=== PATIENT | female | born 1965 | race African-American/Black ===

== ENCOUNTER 2016-05-23 11:15 | Emergency (ER) | payer OTHER ==
[~2016-05-23] VITALS: Ht 172.7 cm; Wt 72.6 kg
[~2016-05-23 11:15] MED LIST: ALBUTEROL SULF8.5 GM INH; ASPIR 8181 MG ORAL; AZITHROMYCIN250 MG ORAL; BETIMOL5 M2 OP; CIPROFLOXACIN1 EACH OP; CYCLOBENZAPRINE10 MG ORAL; IBUPROFEN600 MG ORAL; LISINOPRIL10 MG ORAL; LISINOPRIL20 MG ORAL; MAGIC MOUTH WAS60 ML *; MEDROL DOSEPAK4 MG ORAL; METRONIDAZOLE250 MG ORAL; NAPROSYN500 M1 ORAL; NITROFURANTOIN100 M2 ORAL; NORCO 5-325 TA1 EAC1 ORAL; NORCO 5-325 TA1 EACH ORAL; PREDNISOLON5 MG/5 M2 OP; PROMETHAZINE-C118 M1 ORAL; SALINE NASAL SP45 ML NASAL; ZANTAC150 MG ORAL
[2016-05-23 12:23] LABS: BASOPHILS % (AUTO) 1.9 % (0.0-2.0); EOSINOPHILS % (AUTO) 2.6 % (0.0-3.0); LYMPHOCYTES % (AUTO) 49.7 % (20.0-45.0); MEAN CORPUSCULAR HEMOGLOBIN 30.3 PG (27.0-31.0); MEAN CORPUSCULAR VOLUME 95 FL (80-99); MEAN PLATELET VOLUME 6.8 FL (6.5-10.1); MONOCYTES % (AUTO) 12.1 % (1.0-10.0); NEUTROPHILS % (AUTO) 33.7 % (45.0-75.0); PLATELET COUNT 252 K/UL (150-450); RED BLOOD COUNT 4.21 M/UL (4.20-5.40); RED CELL DISTRIBUTION WIDTH 13.3 % (11.6-14.8); WHITE BLOOD COUNT 5.6 K/UL (4.8-10.8)
[2016-05-23 12:36] LABS: ACETAMINOPHEN < 10 ug/mL (10-30); ALANINE AMINOTRANSFERASE 19 U/L (3-33); ALCOHOL < 10 mg/dL; ANION GAP 13 (5-15); ASPARTATE AMINO TRANSFERASE 29 U/L (5-40); CALCIUM 9.4 mg/dL (8.6-10.2); CARBON DIOXIDE 25 mEQ/L (20-30); CHLORIDE 101 mEQ/L (98-107); GLOMERULAR FILTRATION RATE > 60 mL/min (>60); HEMOLYSIS 40; POTASSIUM 4.1 mEQ/L (3.4-4.9); SODIUM 139 mEQ/L (135-145); TOTAL PROTEIN 7.3 g/dL (6.6-8.7)
[2016-05-23 13:14] VITALS: BP 115/72
[2016-05-23 15:26] VITALS: BP 120/80
--- NOTE | 2016-05-23 15:30 | Emergency Room Report ---
History of Present Illness General Chief Complaint: Pain Source: Patient Present Illness HPI The patient presents stating she is being poisoned. She states that her landlord is poisoning her food. She denies any drugs at this time. In the past she's felt similarly after being exposed to amphetamine. States landlord wants to evict her. Has generalized malaise, occasional nausea, no vomiting or diarrhea. No dysuria. No cough or sore throat. + some chest discomfort. No rashes. Denies medical or psychiatric problems. No SI or HI. Allergies: Coded Allergies: No Known Allergies (Unverified , 08/07/15) Patient History Social History: Reports: drug use - though denies, smoking - former Social History Narrative in apartment Last Menstrual Period: 1991 Now: No Nursing Documentation-[facility] Past Medical History: No History, Except For Hx Hypertension: Yes Hx Pacemaker: No Hx Asthma: Yes Hx COPD: No Hx Diabetes: Yes - BORDERLINE Hx Cancer: Yes - CERVICAL (HYSTERECTOMY) Hx Gastrointestinal Problems: Yes - ULCERS, DIVERTICULOSIS, Hx Dialysis: No - HERPES History Of Psychiatric Problem: Yes - PTSD Hx Cerebrovascular Accident: No Hx Seizures: No Review of Systems All Other Systems: negative except mentioned in HPI Physical Exam Vital Signs Date Time Temp Pulse Resp B/P Pulse Ox O2 Delivery O2 Flow Rate FiO2 05/23/16 11:26 98.8 70 16 116/82 98 Room Air Sp02 EP Interpretation: reviewed, normal General Appearance: well appearing, no apparent distress, GCS 15 Head: normocephalic Eyes: left eye other - opacity ENT: moist mucus membranes Neck: supple Respiratory: lungs clear, normal breath sounds Cardiovascular #1: regular rate, rhythm Cardiovascular #2: 2+ radial (R) Gastrointestinal: normal inspection, normal bowel sounds, non tender, no mass, non-distended Musculoskeletal: back normal, gait/station normal, normal range of motion Neurologic: alert, oriented x3, bacteriology research assistant III-XII nml as tested - grossly normal, motor strength/tone normal, normal gait Psychiatric: anxious, other - paranoid ideation - not psychotic Skin: normal inspection, warm/dry Medical Decision Making Diagnostic Impression: Primary Impression: Amphetamine abuse Additional Impression: Paranoid ideation ER Course Patient presents alleging being poisoned. DDx: shizoaffective with paranoia, drug abuse/exposure, electrolyte abnormalities amongst others. As afebrile, doubt cerebritis or infectious etiology. Need to evaluate labs with tox. Treatment with IV hydration. Not gravely disabled, no SI/HI. Labs with + amphetamine screen. Improved with treatment. Told needs to report to PD if she is not consciously taking drugs. Stable for outpatient observation and treatment. Laboratory Tests Test 05/23/16 11:55 White Blood Count 5.6 K/UL (4.8-10.8) Red Blood Count 4.21 M/UL (4.20-5.40) Hemoglobin 12.7 G/DL (12.0-16.0) Hematocrit 39.8 % (37.0-47.0) Mean Corpuscular Volume 95 FL (80-99) Mean Corpuscular Hemoglobin 30.3 PG (27.0-31.0) Mean Corpuscular Hemoglobin Concent 32.0 G/DL (32.0-36.0) Red Cell Distribution Width 13.3 % (11.6-14.8) Platelet Count 252 K/UL (150-450) Mean Platelet Volume 6.8 FL (6.5-10.1) Neutrophils (%) (Auto) 33.7 % (45.0-75.0) L Lymphocytes (%) (Auto) 49.7 % (20.0-45.0) H Monocytes (%) (Auto) 12.1 % (1.0-10.0) H Eosinophils (%) (Auto) 2.6 % (0.0-3.0) Basophils (%) (Auto) 1.9 % (0.0-2.0) Sodium Level 139 mEQ/L (135-145) Potassium Level 4.1 mEQ/L (3.4-4.9) Chloride Level 101 mEQ/L (98-107) Carbon Dioxide Level 25 mEQ/L (20-30) Anion Gap 13 (5-15) Blood Urea Nitrogen 11 mg/dL (7-23) Creatinine 1.0 mg/dL (0.5-0.9) H Estimate Glomerular Filtration Rate > 60 mL/min (>60) Glucose Level 88 mg/dL (74-106) Calcium Level 9.4 mg/dL (8.6-10.2) Total Bilirubin 0.3 mg/dL (0.0-1.2) Aspartate Amino Transferase (AST) 29 U/L (5-40) Alanine Aminotransferase (ALT) 19 U/L (3-33) Alkaline Phosphatase 59 U/L (35-104) Total Creatine Kinase 152 U/L (26-140) H Total Protein 7.3 g/dL (6.6-8.7) Albumin 3.7 g/dL (3.5-5.2) Globulin 3.6 g/dL Albumin/Globulin Ratio 1.0 (1.0-2.7) Salicylates Level < 1 mg/dL (10-30) L Urine Opiates Screen Negative (NEGATIVE) Acetaminophen Level < 10 ug/mL (10-30) L Urine Barbiturates Screen Negative (NEGATIVE) Phencyclidine (PCP) Screen Negative (NEGATIVE) Urine Amphetamines Screen Positive (NEGATIVE) H Urine Benzodiazepines Screen Negative (NEGATIVE) Urine Cocaine Screen Negative (NEGATIVE) Urine Marijuana (THC) Screen Negative (NEGATIVE) Serum Alcohol < 10 mg/dL EKG Diagnostic Results Rate: bradycardiac ST Segments: no acute changes Rhythm Strip Diag. Results Rhythm: no PVC's, no ectopy, other - shima Last Vital Signs Date Time Temp Pulse Resp B/P Pulse Ox O2 Delivery O2 Flow Rate FiO2 05/23/16 15:26 98.5 65 18 120/80 99 Room Air Status: improved Disposition: HOME, SELF-CARE Condition: Improved Referrals: Seema Ortiz Patient Instructions: Stimulant Use Disorder-Amphetamines Additional Instructions: I suggest going to Amphetamine Anonymous. Mian Rosa M.D. May 23, 2016 15:30
[2016-05-23 15:40] VITALS: BP 120/80
--- NOTE | 2016-05-25 15:19 | Cardiology Report ---
APPROVED REPORT EKG Measurement Heart [id number] Sinus bradycardia Otherwise normal ECG
== END 2016-05-23 15:40 | disposition home or self-care (01) ==
LOC: EMR 11:54
DX: F15.10 Other stimulant abuse, uncomplicated (principal); F22 Delusional disorders; F17.200 Nicotine dependence, unspecified, uncomplicated; I10 Essential (primary) hypertension; J45.909 Unspecified asthma, uncomplicated; E11.9 Type 2 diabetes mellitus without complications; K57.90 Diverticulosis of intestine, part unspecified, without perforation or abscess without bleeding; F43.10 Post-traumatic stress disorder, unspecified; Z85.41 Personal history of malignant neoplasm of cervix uteri; Z90.710 Acquired absence of both cervix and uterus
CPT/HCPCS: 36415; 80053; 80300; 80329; 82550; 85025; 93005; 96374

== ENCOUNTER 2016-06-03 10:57 | Emergency (ER) | payer OTHER ==
[~2016-06-03] VITALS: Ht 160 cm; Wt 83.9 kg
[2016-06-03] MEDS ORDERED: ZANTAC150 MG ORAL (11:04)
[2016-06-03] MEDS ORDERED: LORazepam 0.5mg tab ORAL ONE (12:00)
[2016-06-03] MEDS ORDERED: ZOFRAN ODT4 MG ORAL (13:00)
[2016-06-03 13:15] VITALS: BP 130/85
--- NOTE | 2016-06-04 16:20 | Emergency Room Report ---
History of Present Illness General Chief Complaint: General Complaint Source: Patient, Medical Record Present Illness HPI Patient presents complaining that she feels some palpitation sensation She feels nauseous and she feels that she has been poisoned with amphetamines patient had brought a sample of dough that she feels is likely poisoned with amphetamine Denies any other chest pain denies any headache or visual changes Denies any back or flank pain she does feel again nauseous denies any fevers or chills Allergies: Coded Allergies: No Known Allergies (Unverified , 08/07/15) Patient History Past Medical History: see triage record Pertinent Family History: none : 6 Para: 3 Reviewed Nursing Documentation: PMH: Agreed, PSxH: Agreed Nursing Documentation-PMH Hx Hypertension: Yes Hx Pacemaker: No Hx Asthma: Yes Hx COPD: No Hx Diabetes: Yes - BORDERLINE Hx Cancer: Yes - CERVICAL (HYSTERECTOMY) Hx Gastrointestinal Problems: Yes - ULCERS, DIVERTICULOSIS, Hx Dialysis: No - HERPES Hx Cerebrovascular Accident: No Hx Seizures: No Review of Systems All Other Systems: negative except mentioned in HPI Physical Exam Vital Signs Date Time Temp Pulse Resp B/P Pulse Ox O2 Delivery O2 Flow Rate FiO2 06/03/16 10:59 98.4 71 16 118/83 100 Room Air Sp02 EP Interpretation: reviewed, normal General Appearance: well appearing, no apparent distress Head: normocephalic, atraumatic Eyes: left eye EOMI - Severe cataracts in the left eye ENT: hearing grossly normal, normal pharynx, TMs + canals normal, uvula midline Neck: full range of motion, supple, no meningismus, no bony tend Respiratory: lungs clear, normal breath sounds, no rhonchi, no respiratory distress, no retraction, no accessory muscle use Cardiovascular #1: normal peripheral pulses, regular rate, rhythm, no edema, no gallop, no JVD, no murmur Gastrointestinal: normal bowel sounds, non tender, soft, no mass, no organomegaly, non-distended, no guarding, no hernia, no pulsatile mass, no rebound Genitourinary: no CVA tenderness Musculoskeletal: normal inspection Neurologic: oriented x3, responsive, clam treader III-XII nml as tested, motor strength/ tone normal, sensory intact Psychiatric: mood/affect normal Skin: normal color, no rash, warm/dry, palpation normal Lymphatic: normal inspection, no adenopathy Medical Decision Making Diagnostic Impression: Primary Impression: Poisoning by amphetamine, undetermined intent ER Course Patient requested a urine drug screen At this time it does show amphetamine positive similar to previous request and positive findings I did notify her that unfortunately we cannot run forensics testing on her sample here to the emergency room Patient requires close outpatient followup She was given symptomatic medications for her symptoms and is stable for close outpatient followup Labs Test 06/03/16 11:55 Urine Opiates Screen Negative (NEGATIVE) Urine Barbiturates Screen Negative (NEGATIVE) Phencyclidine (PCP) Screen Negative (NEGATIVE) Urine Amphetamines Screen Positive (NEGATIVE) Urine Benzodiazepines Screen Negative (NEGATIVE) Urine Cocaine Screen Negative (NEGATIVE) Urine Marijuana (THC) Screen Negative (NEGATIVE) Last Vital Signs Date Time Temp Pulse Resp B/P Pulse Ox O2 Delivery O2 Flow Rate FiO2 06/03/16 13:15 97.9 60 16 130/85 98 Room Air Status: improved Disposition: HOME, SELF-CARE Condition: Improved Scripts Ondansetron Odt* (ZOFRAN ODT*) 4 Mg Tab.rapdis 4 MG ORAL Q6H Y for Nausea & Vomiting, #12 TAB 0 Refills Prov: LUCY HERNANDEZ D.O. 06/03/16 Referrals: [facility],REFERRING (PCP) Patient Instructions: Stimulant Use Disorder-Amphetamines, Poisoning Information, Adult Additional Instructions: Patient is provided with the discharge instructions notified to follow up with primary doctor in the next 2-3 days otherwise return to the er with any worsening symptoms. LUCY HERNANDEZ D.O. Jun 04, 2016 16:20
== END 2016-06-03 13:15 | disposition home or self-care (01) ==
LOC: EMR 11:42
DX: R00.2 Palpitations (principal); T43.624A Poisoning by amphetamines, undetermined, initial encounter; Y92.9 Unspecified place or not applicable; I10 Essential (primary) hypertension; J45.909 Unspecified asthma, uncomplicated; Z85.41 Personal history of malignant neoplasm of cervix uteri; Z90.710 Acquired absence of both cervix and uterus; Z87.19 Personal history of other diseases of the digestive system
CPT/HCPCS: 80300; 99282

== ENCOUNTER 2016-09-14 18:38 | Emergency (ER) | payer OTHER ==
[~2016-09-14] VITALS: Ht 160 cm; Wt 86.2 kg
[~2016-09-14 18:38] MED LIST changes: +ZOFRAN ODT4 MG ORAL
[2016-09-14 18:53] VITALS: BP 130/78
--- NOTE | 2016-09-14 19:09 | Emergency Room Report ---
History of Present Illness General Chief Complaint: Headache Source: Patient Present Illness HPI The patient presents with a headache that started on . She was driving to [place]. She smoked and had some alcohol that night. The next day she took some BC powder and there was some relief in her right arm. The headache is been intermittent. She's taken aspirin about every day. It was relieved earlier with drinking caffeine after the aspirin. And then it really went away when she took some tramadol. She still has been having some intermittent chest discomfort. She feels it might be related to taking all the medications she had. It's not exertional. Pain in arm and head 9/10. Arm is more with extension - sharp. Chest discomfort is burning, not exertional. The patient has glaucoma and is blind in her left eye. Family history of blood clots. No NVD, fevers, change vision, persistent weakness or numbness. Allergies: Coded Allergies: No Known Allergies (Unverified , 08/07/15) Patient History Past Medical History: see triage record Social History: Reports: alcohol use, drug use - in the past, smoking Social History Narrative has boyfriend in [place] Reviewed Nursing Documentation: PMH: Agreed, PSxH: Agreed Nursing Documentation-PMH Past Medical History: No History, Except For Hx Hypertension: Yes Hx Pacemaker: No Hx Asthma: Yes Hx COPD: No Hx Diabetes: Yes - BORDERLINE Hx Cancer: Yes - CERVICAL (HYSTERECTOMY) Hx Gastrointestinal Problems: Yes - ULCERS, DIVERTICULOSIS, Hx Dialysis: No - HERPES Hx Cerebrovascular Accident: No Hx Seizures: No Review of Systems All Other Systems: negative except mentioned in HPI Physical Exam Vital Signs Date Time Temp Pulse Resp B/P Pulse Ox O2 Delivery O2 Flow Rate FiO2 09/14/16 18:43 98.4 73 16 130/78 100 Room Air Sp02 EP Interpretation: reviewed, normal General Appearance: well appearing, no apparent distress, GCS 15 Head: normocephalic Eyes: left eye other - scarring of cornea, bilateral eye EOMI, bilateral eye PERRL, bilateral eye normal inspection ENT: moist mucus membranes Neck: supple Respiratory: lungs clear, normal breath sounds Cardiovascular #1: regular rate, rhythm Cardiovascular #2: 2+ radial (R) Gastrointestinal: normal inspection, normal bowel sounds, non tender, no mass, non-distended Musculoskeletal: back normal, gait/station normal, normal range of motion, other - extensor surface tenderness of R arm Neurologic: alert, oriented x3, house nurse III-XII nml as tested, motor strength/tone normal, DTRs symmetric, sensory intact, cerebellar normal, speech normal Psychiatric: mood/affect normal Skin: normal inspection, warm/dry Medical Decision Making Diagnostic Impression: Primary Impression: Headache Qualified Codes: R51 - Headache Additional Impressions: Chest pain Qualified Codes: R07.9 - Chest pain, unspecified R forearm tenderness ER Course Patient presents with a constellation of headache, epigastric and left-sided chest pain with sensory changes in her right arm that have resolved. Differential includes TIA, migraine Harjinder, headache amongst others. We to exclude myocardial infarction. EKG, labs and chest x-ray will be obtained. The patient be treated for her epigastric pain and also her pain.Neurologic exam excludes CVA at this time. Labs unremarkable. Improved with treatment. Patient stable for outpatient observation and treatment. Laboratory Tests Test 09/14/16 19:18 09/14/16 19:26 09/14/16 20:39 White Blood Count 6.7 K/UL (4.8-10.8) Red Blood Count 3.90 M/UL (4.20-5.40) L Hemoglobin 12.5 G/DL (12.0-16.0) Hematocrit 35.9 % (37.0-47.0) L Mean Corpuscular Volume 92 FL (80-99) Mean Corpuscular Hemoglobin 32.1 PG (27.0-31.0) H Mean Corpuscular Hemoglobin Concent 34.8 G/DL (32.0-36.0) Red Cell Distribution Width 13.1 % (11.6-14.8) Platelet Count 190 K/UL (150-450) Mean Platelet Volume 6.7 FL (6.5-10.1) Neutrophils (%) (Auto) 33.9 % (45.0-75.0) L Lymphocytes (%) (Auto) 53.9 % (20.0-45.0) H Monocytes (%) (Auto) 8.7 % (1.0-10.0) Eosinophils (%) (Auto) 1.7 % (0.0-3.0) Basophils (%) (Auto) 1.8 % (0.0-2.0) Sodium Level 139 mEQ/L (135-145) Potassium Level 3.7 mEQ/L (3.4-4.9) Chloride Level 99 mEQ/L (98-107) Carbon Dioxide Level 24 mEQ/L (20-30) Anion Gap 16 (5-15) H Blood Urea Nitrogen 9 mg/dL (7-23) Creatinine 0.9 mg/dL (0.5-0.9) Estimate Glomerular Filtration Rate > 60 mL/min (>60) Glucose Level 116 mg/dL (74-106) H Calcium Level 9.3 mg/dL (8.6-10.2) Total Bilirubin 0.3 mg/dL (0.0-1.2) Aspartate Amino Transferase (AST) 27 U/L (5-40) Alanine Aminotransferase (ALT) 18 U/L (3-33) Alkaline Phosphatase 69 U/L (35-104) Total Creatine Kinase 191 U/L (26-140) H Troponin I < 0.30 ng/mL (<=0.30) Total Protein 7.0 g/dL (6.6-8.7) Albumin 3.7 g/dL (3.5-5.2) Globulin 3.3 g/dL Albumin/Globulin Ratio 1.1 (1.0-2.7) Urine Color Pale yellow Urine Appearance Clear Urine pH 6 (4.5-8.0) Urine Specific [place] 1.015 (1.005-1.035) Urine Protein Negative (NEGATIVE) Urine Glucose (UA) Negative (NEGATIVE) Urine Ketones Negative (NEGATIVE) Urine Occult Blood Negative (NEGATIVE) Urine Nitrite Negative (NEGATIVE) Urine Bilirubin Negative (NEGATIVE) Urine Urobilinogen Normal MG/DL (0.0-1.0) Urine Leukocyte Esterase Negative (NEGATIVE) Urine Opiates Screen Negative (NEGATIVE) Urine Barbiturates Screen Negative (NEGATIVE) Phencyclidine (PCP) Screen Negative (NEGATIVE) Urine Amphetamines Screen Negative (NEGATIVE) Urine Benzodiazepines Screen Negative (NEGATIVE) Urine Cocaine Screen Negative (NEGATIVE) Urine Marijuana (THC) Screen Positive (NEGATIVE) H Erythrocyte Sedimentation Rate Pending EKG Diagnostic Results Rate: normal Rhythm: NSR ST Segments: no acute changes Rhythm Strip Diag. Results EP Interpretation: yes Rhythm: NSR, no PVC's, no ectopy Chest X-Ray Diagnostic Results EP Interpretation: Yes Findings: no consolidation, no effusion, no pneumothorax, no acute cardiopulmonary disease Number of Views: 1 Last Vital Signs Date Time Temp Pulse Resp B/P Pulse Ox O2 Delivery O2 Flow Rate FiO2 09/14/16 23:51 66 15 124/72 98 Room Air 09/14/16 19:44 98.4 Status: improved Disposition: HOME, SELF-CARE Condition: Improved Mian Rosa M.D. Sep 14, 2016 19:09
[2016-09-14] MEDS ORDERED: Ketorolac 30mg Inj IV ONE (19:15)
[2016-09-14] MEDS ORDERED: Famotidine 20 MG/ 2ML VIAL IVP ONE (19:15)
[2016-09-14 20:04] VITALS: BP 141/73
[2016-09-14 20:05] LABS: BASOPHILS % (AUTO) 1.8 % (0.0-2.0); EOSINOPHILS % (AUTO) 1.7 % (0.0-3.0); LYMPHOCYTES % (AUTO) 53.9 % (20.0-45.0); MEAN CORPUSCULAR HEMOGLOBIN 32.1 PG (27.0-31.0); MEAN CORPUSCULAR HGB CONC 34.8 G/DL (32.0-36.0); MEAN CORPUSCULAR VOLUME 92 FL (80-99); MEAN PLATELET VOLUME 6.7 FL (6.5-10.1); MONOCYTES % (AUTO) 8.7 % (1.0-10.0); NEUTROPHILS % (AUTO) 33.9 % (45.0-75.0); PLATELET COUNT 190 K/UL (150-450); RED CELL DISTRIBUTION WIDTH 13.1 % (11.6-14.8); WHITE BLOOD COUNT 6.7 K/UL (4.8-10.8)
[2016-09-14 20:20] LABS: APPEARANCE,URINE CLEAR; KETONES,URINE NEGATIVE (NEGATIVE); LEUKOCYTE ESTERASE ,URINE NEGATIVE (NEGATIVE); NITRITE,URINE NEGATIVE (NEGATIVE); PH,URINE 6 (4.5-8.0); PROTEIN,URINE NEGATIVE (NEGATIVE); UROBILINOGEN,URINE NORMAL MG/DL (0.0-1.0)
[2016-09-14 20:24] LABS: ALANINE AMINOTRANSFERASE 18 U/L (3-33); ALBUMIN/GLOBULIN RATIO 1.1 (1.0-2.7); ANION GAP 16 (5-15); ASPARTATE AMINO TRANSFERASE 27 U/L (5-40); CALCIUM 9.3 mg/dL (8.6-10.2); CARBON DIOXIDE 24 mEQ/L (20-30); CHLORIDE 99 mEQ/L (98-107); CREATININE 0.9 mg/dL (0.5-0.9); GLOMERULAR FILTRATION RATE > 60 mL/min (>60); HEMOLYSIS 31; POTASSIUM 3.7 mEQ/L (3.4-4.9); SODIUM 139 mEQ/L (135-145)
[2016-09-14 20:25] LABS: TROPONIN I < 0.30 ng/mL (<=0.30)
[2016-09-14 23:51] VITALS: BP 124/72
--- NOTE | 2016-09-15 11:38 | Diagnostic Imaging Report ---
Indication: Chest pain Technique: One view of the chest Comparison: 03/25/2016 Findings: Heart size is upper limits of normal. Lungs and pleural spaces are clear. No significant change Impression: No acute process
--- NOTE | 2016-09-16 14:27 | Cardiology Report ---
APPROVED REPORT EKG Measurement Heart [id number] Normal sinus rhythm Normal ECG
== END 2016-09-14 23:57 | disposition home or self-care (01) ==
LOC: EMR 19:10
DX: R51 Headache (principal); R07.89 Other chest pain; M79.631 Pain in right forearm; F17.200 Nicotine dependence, unspecified, uncomplicated; Z85.41 Personal history of malignant neoplasm of cervix uteri
CPT/HCPCS: 36415; 71010; 80053; 80300; 81003; 82550; 84484; 85025; 85651; 93005; 96374; 96375; 99284; J1885; S0028

== ENCOUNTER 2016-10-14 16:52 | Emergency (ER) | payer OTHER ==
[~2016-10-14] VITALS: Ht 160 cm; Wt 89.8 kg
[2016-10-14 17:40] VITALS: BP 137/77
[2016-10-14] MEDS ORDERED: PREDNISONE20 MG ORAL (17:55)
[2016-10-14] MEDS ORDERED: BENADRYL25 MG ORAL (17:55)
[2016-10-14] MEDS ORDERED: CEPHALEXIN500 MG ORAL (17:55)
[2016-10-14 18:01] VITALS: BP 137/77
--- NOTE | 2016-10-14 20:38 | Emergency Room Report ---
History of Present Illness General Chief Complaint: General Complaint Source: Patient Present Illness HPI The patient is a 51-year-old female presenting for possible insect bites. The patient states that she has been sleeping at a hotel and noticed itching of the abdomen and face. She denies any known allergies. She states that she noticed dark spots in the area is then applied hydrocortisone which has not been helping. She is concerned for bed bug bites. She denies any pain. She denies any other symptoms including N, V, F, chills, ARZATE, dizziness, SOB, CP Allergies: Coded Allergies: No Known Allergies (Unverified , 08/07/15) Patient History Past Medical History: see triage record Pertinent Family History: none Now: No Reviewed Nursing Documentation: PMH: Agreed, PSxH: Agreed Nursing Documentation-PMH Past Medical History: No Stated History Hx Hypertension: Yes Hx Pacemaker: No Hx Asthma: Yes Hx COPD: No Hx Diabetes: Yes - BORDERLINE Hx Cancer: Yes - CERVICAL (HYSTERECTOMY) Hx Gastrointestinal Problems: Yes - ULCERS, DIVERTICULOSIS, Hx Dialysis: No - HERPES Hx Cerebrovascular Accident: No Hx Seizures: No Review of Systems All Other Systems: negative except mentioned in HPI Physical Exam Vital Signs Date Time Temp Pulse Resp B/P Pulse Ox O2 Delivery O2 Flow Rate FiO2 10/14/16 17:27 98.4 73 18 137/77 94 Room Air Sp02 EP Interpretation: reviewed, normal General Appearance: no apparent distress, alert, GCS 15, non-toxic Head: normocephalic, atraumatic Eyes: bilateral eye PERRL, bilateral eye normal inspection ENT: hearing grossly normal, normal pharynx, no angioedema, normal voice Neck: full range of motion, supple/symm/no masses Respiratory: chest non-tender, lungs clear, normal breath sounds, speaking full sentences Gastrointestinal: normal bowel sounds, non tender, soft, non-distended, no guarding, no rebound, other - there is a macular erythematous lesion to the R of umbilicus. No edema. Non tender. Several similar lesions noted on arms and face Musculoskeletal: back normal, gait/station normal, normal range of motion, non- tender Neurologic: alert, oriented x3, responsive, motor strength/tone normal, sensory intact, normal gait, speech normal Psychiatric: judgement/insight normal, memory normal, mood/affect normal, no suicidal/homicidal ideation Skin: normal color, warm/dry, well hydrated, rash - several erythematous/ hyperpigmented lesions of the abdomen, arms, and face. No vessicles. Non tender Lymphatic: no adenopathy Medical Decision Making PA Attestation Dr. Warren is my supervising physician. Patient management was discussed with my supervising physician Diagnostic Impression: Primary Impression: Insect bite Qualified Codes: W57.XXXA - Bitten or stung by nonvenomous insect and other nonvenomous arthropods, initial encounter ER Course The patient is a 51-year-old female presenting for possible insect bites Ddx considered include but not limited to insect bite, scabies, contact dermatitis, eczema, cellulitis PE: afebrile. NAD there is a macular erythematous lesion to the R of umbilicus. No edema. Non tender. Several similar lesions noted on arms and face. No lesions in web spaces. No burrowing. No angioedema. Lungs CTA bilat. The patient will be discharged with a prescription for prednisone, Keflex, and Benadryl. ER precautions Last Vital Signs Date Time Temp Pulse Resp B/P Pulse Ox O2 Delivery O2 Flow Rate FiO2 10/14/16 18:01 98.4 81 18 137/77 94 Room Air Status: improved Disposition: HOME, SELF-CARE Condition: Improved Scripts Prednisone* (PREDNISONE*) 20 Mg Tablet 20 MG ORAL DAILY, #5 TAB 0 Refills Prov: TERZIANLAURELY P.A. 10/14/16 Cephalexin* (KEFLEX*) 500 Mg Capsule 500 MG ORAL EVERY 12 HOURS, #14 CAP 0 Refills Prov: TERZIAN,RYLAND P.A. 10/14/16 Diphenhydramine Hcl* (BENADRYL*) 25 Mg Capsule 25 MG ORAL Q6H Y for Itching, #15 CAP Prov: TERZIAN,RYLAND P.A. 10/14/16 Patient Instructions: Insect Bite, [id number] Additional Instructions: I discussed my findings with the patient. All questions and concerns have been answered. Treatment and medication compliance have been addressed. I advised the patient that they need to follow up with PMD in 3-5 days. Return to ED if symptoms worsen, new symptoms arise, or if needed for any reason. Patient verbalized understanding of discharge instructions. RYLAND MCCLELLAN October 14, 2016 20:37
== END 2016-10-14 18:03 | disposition home or self-care (01) ==
LOC: EMR 17:22
DX: S30.861A Insect bite (nonvenomous) of abdominal wall, initial encounter (principal); S00.86XA Insect bite (nonvenomous) of other part of head, initial encounter; S40.862A Insect bite (nonvenomous) of left upper arm, initial encounter; S40.861A Insect bite (nonvenomous) of right upper arm, initial encounter; W57.XXXA Bitten or stung by nonvenomous insect and other nonvenomous arthropods, initial encounter; Y92.89 Other specified places as the place of occurrence of the external cause; I10 Essential (primary) hypertension; J45.909 Unspecified asthma, uncomplicated; Z90.710 Acquired absence of both cervix and uterus; Z87.19 Personal history of other diseases of the digestive system
CPT/HCPCS: 99284

== ENCOUNTER 2017-05-10 19:19 | Emergency (ER) | payer OTHER ==
[~2017-05-10] VITALS: Ht 160 cm; Wt 85.7 kg
[~2017-05-10 19:19] MED LIST changes: +BENADRYL25 MG ORAL; +CEPHALEXIN500 MG ORAL; +PREDNISONE20 MG ORAL
[2017-05-10] MEDS ORDERED: PANTOPRAZOLE SO40 MG ORAL (19:37)
[2017-05-10] MEDS ORDERED: Sodium Chloride 500ML 500 ML IV ONE (19:58)
[2017-05-10 20:40] LABS: BASOPHILS % (AUTO) 1.3 % (0.0-2.0); EOSINOPHILS % (AUTO) 1.2 % (0.0-3.0); LYMPHOCYTES % (AUTO) 40.5 % (20.0-45.0); MEAN CORPUSCULAR HEMOGLOBIN 28.4 PG (27.0-31.0); MEAN CORPUSCULAR HGB CONC 30.8 G/DL (32.0-36.0); MEAN CORPUSCULAR VOLUME 92 FL (80-99); MEAN PLATELET VOLUME 5.7 FL (6.5-10.1); MONOCYTES % (AUTO) 7.5 % (1.0-10.0); NEUTROPHILS % (AUTO) 49.6 % (45.0-75.0); PLATELET COUNT 260 K/UL (150-450); RED BLOOD COUNT 4.39 M/UL (4.20-5.40); RED CELL DISTRIBUTION WIDTH 12.8 % (11.6-14.8); WHITE BLOOD COUNT 7.7 K/UL (4.8-10.8)
[2017-05-10 20:42] VITALS: BP 148/101
[2017-05-10] MEDS ORDERED: Ketorolac 30mg Inj IV ONE (20:45)
[2017-05-10 20:51] LABS: CHLORIDE 107 MMOL/L (98-107); POTASSIUM 3.3 MMOL/L (3.5-5.1); SODIUM 142 MMOL/L (136-145)
[2017-05-10 20:57] LABS: ANION GAP 9 mmol/L (5-15); CALCIUM 9.5 MG/DL (8.5-10.1); CARBON DIOXIDE 26 MMOL/L (21-32); CREATININE 0.9 MG/DL (0.55-1.30); GLOMERULAR FILTRATION RATE > 60 mL/min (>60)
[2017-05-10 21:04] LABS: ACETAMINOPHEN < 2 MCG/ML (10-30); ALANINE AMINOTRANSFERASE 25 U/L (12-78); ALBUMIN/GLOBULIN RATIO 0.9 (1.0-2.7); ALCOHOL < 3 mg/dL; ASPARTATE AMINO TRANSFERASE 23 U/L (15-37); TOTAL PROTEIN 8.2 G/DL (6.4-8.2)
[2017-05-10 22:00] VITALS: BP 137/91
[2017-05-10 22:05] VITALS: BP 137/91
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
== END 2017-05-10 22:05 | disposition home or self-care (01) ==
LOC: EMR 19:40
DX: Z77.098 Contact with and (suspected) exposure to other hazardous, chiefly nonmedicinal, chemicals (principal); R10.13 Epigastric pain; I10 Essential (primary) hypertension; J45.909 Unspecified asthma, uncomplicated
CPT/HCPCS: 36415; 80053; 80307; 85025; 96361; 96374; 99284; G0480; J1885; J7040; 80329

== ENCOUNTER 2017-12-26 04:51 | Emergency (ER) | payer OTHER ==
[~2017-12-26] VITALS: Ht 160 cm; Wt 87.1 kg
[~2017-12-26 04:51] MED LIST changes: +PANTOPRAZOLE SO40 MG ORAL
[2017-12-26 04:55] VITALS: BP 132/89
[2017-12-26] MEDS ORDERED: AMLODIPINE BESY10 MG ORAL (05:00)
[2017-12-26 05:36] LABS: APPEARANCE,URINE CLEAR; BILIRUBIN, URINE NEGATIVE (NEGATIVE); GLUCOSE, URINE (UA) NEGATIVE (NEGATIVE); KETONES,URINE NEGATIVE (NEGATIVE); LEUKOCYTE ESTERASE ,URINE NEGATIVE (NEGATIVE); NITRITE,URINE NEGATIVE (NEGATIVE); PH,URINE 5 (4.5-8.0); PROTEIN,URINE NEGATIVE (NEGATIVE); UROBILINOGEN,URINE NORMAL (NORMAL)
[2017-12-26 05:39] LABS: COLOR,URINE YELLOW
[2017-12-26 06:27] VITALS: BP 109/76
[2017-12-26] MEDS ORDERED: IBUPROFEN600 MG ORAL (06:32)
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
[2017-12-26 06:37] VITALS: BP 109/76
[2017-12-26] MEDS ORDERED: Ketorolac 60mg Inj IM ONE (07:45)
== END 2017-12-26 06:38 | disposition home or self-care (01) ==
LOC: EMR 05:34
DX: M54.5 Low back pain (principal); F22 Delusional disorders; I10 Essential (primary) hypertension; J45.909 Unspecified asthma, uncomplicated; J44.9 Chronic obstructive pulmonary disease, unspecified; R73.03 Prediabetes; Z85.41 Personal history of malignant neoplasm of cervix uteri; Z90.710 Acquired absence of both cervix and uterus
CPT/HCPCS: 80307; 81003; 96372; 99283

== ENCOUNTER 2018-09-30 00:27 | Emergency (ER) | payer SELFPAY ==
[~2018-09-30] VITALS: Ht 160 cm; Wt 83.9 kg
[~2018-09-30 00:27] MED LIST changes: +AMLODIPINE BESY10 MG ORAL
[2018-09-30 00:43] VITALS: BP 144/92
--- NOTE | 2018-09-30 00:43 | NUR ---
ER Nurse Note: Pt came from home c/o multiple complaints. Pt stated she feels weak, has night sweats, generilzied body pain due to flea bites all over the body from the dogs at work. Pt stated she felt like this for a week now. Pt a&ox4, VSS, no fever, no chills, no tremors, no chest pain, no shortness of breath present. [facility]
[2018-09-30] MEDS ORDERED: Ketorolac 30mg Inj IV ONE (01:00)
[2018-09-30] MEDS ORDERED: Tetanus/Diptheria/Pertussis IM ONE (01:15)
[2018-09-30] MEDS ORDERED: Bacitracin Oint UD TOPIC ONE (01:15)
[2018-09-30 01:37] LABS: APPEARANCE,URINE CLEAR; BILIRUBIN, URINE NEGATIVE (NEGATIVE); COLOR,URINE PALE YELLOW; GLUCOSE, URINE (UA) NEGATIVE (NEGATIVE); KETONES,URINE NEGATIVE (NEGATIVE); LEUKOCYTE ESTERASE ,URINE 1+ (NEGATIVE); NITRITE,URINE NEGATIVE (NEGATIVE); PH,URINE 5 (4.5-8.0); PROTEIN,URINE NEGATIVE (NEGATIVE); UROBILINOGEN,URINE NORMAL MG/DL (0.0-1.0)
[2018-09-30 01:40] LABS: BASOPHILS % (AUTO) 1.5 % (0.0-2.0); EOSINOPHILS % (AUTO) 2.2 % (0.0-3.0); HEMOGLOBIN 12.1 G/DL (12.0-16.0); LYMPHOCYTES % (AUTO) 50.4 % (20.0-45.0); MEAN CORPUSCULAR VOLUME 88 FL (80-99); NEUTROPHILS % (AUTO) 38.9 % (45.0-75.0); PLATELET COUNT 214 K/UL (150-450); RED CELL DISTRIBUTION WIDTH 12.8 % (11.6-14.8); WHITE BLOOD COUNT 6.1 K/UL (4.8-10.8)
[2018-09-30 01:48] LABS: ANION GAP 8 mmol/L (5-15); BLOOD UREA NITROGEN 11 mg/dL (7-18); CALCIUM 9.3 MG/DL (8.5-10.1); CARBON DIOXIDE 27 MMOL/L (21-32); CHLORIDE 104 MMOL/L (98-107); CREATININE 0.9 MG/DL (0.55-1.30); POTASSIUM 3.6 MMOL/L (3.5-5.1); SODIUM 139 MMOL/L (136-145)
[2018-09-30 01:59] LABS: ALANINE AMINOTRANSFERASE 24 U/L (12-78); ALBUMIN 3.7 G/DL (3.4-5.0); ALBUMIN/GLOBULIN RATIO 0.8 (1.0-2.7); ALKALINE PHOSPHATASE 90 U/L (46-116); ASPARTATE AMINO TRANSFERASE 27 U/L (15-37); BILIRUBIN,TOTAL 0.3 MG/DL (0.2-1.0); CREATINE KINASE 166 U/L (26-308)
[2018-09-30 03:22] VITALS: BP 122/73
--- NOTE | 2018-09-30 03:23 | NUR ---
ER Nurse Note: Pt asleep, calm and comfortable. Pt VSS, no signs of distress. Awaiting further instructions for ERMD. All orders compeleted per ERMD orders. All safety measures met; will continue to monitor.
--- NOTE | 2018-09-30 03:36 | Emergency Room Report ---
History of Present Illness General Chief Complaint: General Complaint Source: Patient Present Illness HPI Patient presents with generalized malaise after receiving multiple flea bites from dog's that have come from homeless [place] she received he is at her work. She works washing them at a homeless residential. She has muscle aches and feels weak with occasional headache. She denies any upper respiratory symptomatology. No other rashes. Some joint discomfort. She has felt chills but no documented fevers. She has been using topical over the counter preparations, but not hydrocortisone. They are more painful than itching. Pain rated 10/10 burning and aching. She is concerned over Brucellosis but has heard of others with recent infectious disease outbreaks. Denies NVD, dysuria. 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 Now: No : 6 Para: 3 Reviewed Nursing Documentation: PMH: Agreed; PSxH: Agreed Nursing Documentation-PMH Hx Hypertension: Yes Hx Asthma: Yes Hx COPD: No Hx Diabetes: Yes - BORDERLINE Hx Cancer: Yes - CERVICAL (HYSTERECTOMY) Hx Gastrointestinal Problems: Yes - acid reflux Hx Dialysis: No - HERPES Hx Cerebrovascular Accident: No Hx Seizures: No Review of Systems All Other Systems: negative except mentioned in HPI Physical Exam Vital Signs Date Time Temp Pulse Resp B/P (MAP) Pulse Ox O2 Delivery O2 Flow Rate FiO2 09/30/18 00:33 98.4 95 18 100 Room Air 09/30/18 00:43 144/92 Sp02 EP Interpretation: reviewed, normal General Appearance: well appearing, no apparent distress, GCS 15, non-toxic Head: normocephalic Eyes: bilateral eye normal inspection, bilateral eye PERRL, bilateral eye EOMI ENT: moist mucus membranes Neck: supple Respiratory: lungs clear, normal breath sounds Cardiovascular #1: regular rate, rhythm Cardiovascular #2: 2+ radial (R) Gastrointestinal: normal inspection, normal bowel sounds, non tender, no mass, non-distended Musculoskeletal: back normal, gait/station normal, normal range of motion Neurologic: alert, oriented x3 Skin: normal inspection, warm/dry Medical Decision Making Diagnostic Impression: Primary Impression: Animal flea bite Ruled Out: Typhus ER Course Patient presents with multiple somatic complaints after being exposed to flea bites from dogs from homeless camps. Differential includes cellulitis, typhus, plague, somatizations amongst others. Evaluation will be with labs and chest x- ray. The patient will receive IV hydration and Toradol. Tetanus is updated and bacitracin is applied to the lesions. Labs remarkable for normal white count, CMP normal. Lactate normal. Urinalysis unremarkable. Tox screen positive for THC. CXR clear. Discussed findings with patient. Pain is resolved. Discussed treatment plan. Patient stable for outpatient observation and treatment. Labs Test 09/30/18 01:15 09/30/18 01:20 Urine Color Pale yellow Urine Appearance Clear Urine pH 5 (4.5-8.0) Urine Specific [place] 1.015 (1.005-1.035) Urine Protein Negative (NEGATIVE) Urine Glucose (UA) Negative (NEGATIVE) Urine Ketones Negative (NEGATIVE) Urine Blood Negative (NEGATIVE) Urine Nitrite Negative (NEGATIVE) Urine Bilirubin Negative (NEGATIVE) Urine Urobilinogen Normal MG/DL (0.0-1.0) Urine Leukocyte Esterase 1+ (NEGATIVE) Urine RBC 0-2 /HPF (0 - 2) Urine WBC 2-4 /HPF (0 - 2) Urine Squamous Epithelial Cells Few /LPF (NONE/OCC) Urine Bacteria Occasional /HPF (NONE) White Blood Count 6.1 K/UL (4.8-10.8) Red Blood Count 4.00 M/UL (4.20-5.40) Hemoglobin 12.1 G/DL (12.0-16.0) Hematocrit 35.0 % (37.0-47.0) Mean Corpuscular Volume 88 FL (80-99) Mean Corpuscular Hemoglobin 30.2 PG (27.0-31.0) Mean Corpuscular Hemoglobin Concent 34.4 G/DL (32.0-36.0) Red Cell Distribution Width 12.8 % (11.6-14.8) Platelet Count 214 K/UL (150-450) Mean Platelet Volume 6.5 FL (6.5-10.1) Neutrophils (%) (Auto) 38.9 % (45.0-75.0) Lymphocytes (%) (Auto) 50.4 % (20.0-45.0) Monocytes (%) (Auto) 7.0 % (1.0-10.0) Eosinophils (%) (Auto) 2.2 % (0.0-3.0) Basophils (%) (Auto) 1.5 % (0.0-2.0) Erythrocyte Sedimentation Rate 28 MM/HR (0-30) Prothrombin Time 10.3 SEC (9.30-11.50) Prothromb Time International Ratio 1.0 (0.9-1.1) Activated Partial Thromboplast Time 19 SEC (23-33) Sodium Level 139 MMOL/L (136-145) Potassium Level 3.6 MMOL/L (3.5-5.1) Chloride Level 104 MMOL/L (98-107) Carbon Dioxide Level 27 MMOL/L (21-32) Anion Gap 8 mmol/L (5-15) Blood Urea Nitrogen 11 mg/dL (7-18) Creatinine 0.9 MG/DL (0.55-1.30) Estimat Glomerular Filtration Rate > 60 mL/min (>60) Glucose Level 108 MG/DL (74-106) Lactic Acid Level 1.30 mmol/L (0.4-2.0) Calcium Level 9.3 MG/DL (8.5-10.1) Total Bilirubin 0.3 MG/DL (0.2-1.0) Aspartate Amino Transf (AST/SGOT) 27 U/L (15-37) Alanine Aminotransferase (ALT/SGPT) 24 U/L (12-78) Alkaline Phosphatase 90 U/L (46-116) Total Creatine Kinase 166 U/L (26-308) C-Reactive Protein, Quantitative < 0.4 mg/dL (0.00-0.90) Pro-B-Type Natriuretic Peptide 56 pg/mL (0-125) Total Protein 8.2 G/DL (6.4-8.2) Albumin 3.7 G/DL (3.4-5.0) Globulin 4.5 g/dL Albumin/Globulin Ratio 0.8 (1.0-2.7) Urine Opiates Screen Negative (NEGATIVE) Urine Barbiturates Screen Negative (NEGATIVE) Phencyclidine (PCP) Screen Negative (NEGATIVE) Urine Amphetamines Screen Negative (NEGATIVE) Urine Benzodiazepines Screen Negative (NEGATIVE) Urine Cocaine Screen Negative (NEGATIVE) Urine Marijuana (THC) Screen Positive (NEGATIVE) Chest X-Ray Diagnostic Results Chest X-Ray Diagnostic Results : Chest X-Ray Ordered: Yes # of Views/Limited/Complete: 1 View Indication: Other EP Interpretation: Yes Interpretation: no consolidation, no effusion, no pneumothorax Impression: No acute disease Electronically Signed by: Electronically signed by Mian Rosa MD Last Vital Signs Date Time Temp Pulse Resp B/P (MAP) Pulse Ox O2 Delivery O2 Flow Rate FiO2 09/30/18 03:43 97.6 80 14 122/73 100 Room Air Status: improved Disposition: HOME, SELF-CARE Condition: Improved Scripts Hydrocortisone/Aloe Vera 1%* (HYDROCORTISONE-ALOE 1% CREAM*) Y Cr 1 APPLIC TOPIC Q6H PRN for Itching, #15 GM Prov: Mian Rosa MD 09/30/18 Bacitracin (Bacitracin) 28.4 Gm Oint...g. 1 APPLIC TOPIC BID, #20 GM Prov: Mian Rosa MD 09/30/18 Acetaminophen (Tylenol) 325 Mg Tablet 650 MG ORAL Q6H PRN for Prn Pain/Headache/Temp > 101, #20 TAB 0 Refills Prov: Mian Rosa MD 09/30/18 Ibuprofen* (MOTRIN*) 600 Mg Tablet 600 MG ORAL Q6H PRN for For Pain, #20 TAB Prov: Mian Rosa MD 09/30/18 Trimethoprim/Sulfamethoxazole 160/800* (BACTRIM DS TABLET*) 1 Each Tablet 1 TAB ORAL Q12H, #14 TAB 0 Refills Prov: Mian Rosa MD 09/30/18 Referrals: [facility]/,REFERRING (PCP) Mian Rosa MD September 30, 2018 03:36
[2018-09-30] MEDS ORDERED: IBUPROFEN600 MG ORAL (03:40)
[2018-09-30] MEDS ORDERED: HYDROCORTISONE-30 GM TOPIC (03:40)
[2018-09-30] MEDS ORDERED: BACITRACIN15 GM TOPIC (03:40)
[2018-09-30] MEDS ORDERED: TYLENOL325 MG ORAL (03:40)
[2018-09-30] MEDS ORDERED: BACTRIM DS TAB1 EAC1 ORAL (03:40)
[2018-09-30 03:43] VITALS: BP 122/73
--- NOTE | 2018-09-30 03:44 | NUR ---
ER Nurse Note: All orders completed per ERMD orders. Pt seen, treated, medically cleared for discharge by ERMD. Discharge instructions given with repeat verbazliaion by pt. Instructed pt to follow up with primary care provider within one week. Pt a&ox4, VSS, no signs of distress. ID band removed. IV removed, site clean and bandaged. Pt left with all belongings with steady gait via own transportation with family member.
[2018-09-30] MEDS ORDERED: Bactrim-DS 1 tab ORAL ONE (03:45)
== END 2018-09-30 03:45 | disposition home or self-care (01) ==
LOC: EMR 00:46
DX: T14.8XXA Other injury of unspecified body region, initial encounter (principal); W57.XXXA Bitten or stung by nonvenomous insect and other nonvenomous arthropods, initial encounter; Y92.9 Unspecified place or not applicable; M79.10 Myalgia, unspecified site; R51 Headache; F17.200 Nicotine dependence, unspecified, uncomplicated; Z90.710 Acquired absence of both cervix and uterus; K21.9 Gastro-esophageal reflux disease without esophagitis; Z23 Encounter for immunization
CPT/HCPCS: 36415; 71045; 80053; 80307; 81003; 82550; 83605; 83880; 85025; 85610; 85651; 85730; 86140; 90471; 90715; 96361; 96374; 99284; J1885

== ENCOUNTER 2019-04-29 17:33 | Emergency (ER) | payer OTHER ==
[~2019-04-29] VITALS: Ht 160 cm; Wt 95.3 kg
[~2019-04-29 17:33] MED LIST changes: +BACITRACIN15 GM TOPIC; +BACTRIM DS TAB1 EAC1 ORAL; +HYDROCORTISONE-30 GM TOPIC; +TYLENOL325 MG ORAL
[2019-04-29 18:24] VITALS: BP 115/79
--- NOTE | 2019-04-29 18:56 | Emergency Room Report ---
History of Present Illness General Chief Complaint: Sore Throat Source: Patient Present Illness HPI 54-year-old female with history of amphetamine abuse here complaining of sore throat that started today after possibly drinking water that someone urinated in it. Patient reports that she feels like she has an STD in her mouth and wants to be tested. Patient has been here before for amphetamine abuse. Appears hostile and under the influence of unknown stimulant. Denies all other associated symptom such as fever, cough and congestion. Agrees to be treated for both chlamydia and gonorrhea. Also agrees to be given a list of STD clinics to go and get tested. Allergies: Coded Allergies: No Known Allergies (Unverified , 08/07/15) Patient History Past Medical History: see triage record Past Surgical History: unable to obtain Pertinent Family History: none Last Menstrual Period: hysterectomy 1991 Now: No Immunizations: UTD Reviewed Nursing Documentation: PMH: Agreed; PSxH: Agreed Nursing Documentation-PMH Past Medical History: No History, Except For Hx Hypertension: Yes Hx Asthma: Yes Hx COPD: No Hx Diabetes: Yes - BORDERLINE Hx Cancer: Yes - CERVICAL (HYSTERECTOMY) Hx Gastrointestinal Problems: Yes - acid reflux Hx Dialysis: No - HERPES Hx Cerebrovascular Accident: No Hx Seizures: No Review of Systems All Other Systems: negative except mentioned in HPI Physical Exam Vital Signs Date Time Temp Pulse Resp B/P (MAP) Pulse Ox O2 Delivery O2 Flow Rate FiO2 04/29/19 17:34 98.1 101 16 115/79 (91) 98 Room Air Sp02 EP Interpretation: reviewed, normal General Appearance: no apparent distress, alert, GCS 15, non-toxic Head: normocephalic, atraumatic Eyes: bilateral eye normal inspection, bilateral eye PERRL ENT: hearing grossly normal, normal pharynx, no angioedema, normal voice Neck: full range of motion, supple/symm/no masses Respiratory: chest non-tender, lungs clear, normal breath sounds, no rhonchi, no wheezing, speaking full sentences Cardiovascular #1: regular rate, rhythm, no edema, no murmur Gastrointestinal: normal bowel sounds, non tender, soft Rectal: deferred Genitourinary: no CVA tenderness Musculoskeletal: back normal Neurologic: alert, motor strength/tone normal, oriented x3, sensory intact, responsive, speech normal Psychiatric: judgement/insight normal, memory normal, mood/affect normal, no suicidal/homicidal ideation Skin: no rash Lymphatic: no adenopathy Medical Decision Making JASMIN Attestation All diagnoses and treatment plans were reviewed and discussed with my supervising physician Dr. Saenz Diagnostic Impression: Primary Impression: Pharyngitis ER Course 54-year-old female with history of amphetamine abuse here complaining of sore throat that started today after possibly drinking water that someone urinated in it. Patient reports that she feels like she has an STD in her mouth and wants to be tested. Patient has been here before for amphetamine abuse. Appears hostile and under the influence of unknown stimulant. Denies all other associated symptom such as fever, cough and congestion. Agrees to be treated for both chlamydia and gonorrhea. Also agrees to be given a list of STD clinics to go and get tested. Ddx considered but are not limited to: strep pharyngitis, URI, tonsillitis, peritonsillar absacess, influneza Vital signs: are WNL, pt. is afebrile H&PE are most consistent with: Pharyngitis ORDERS: none ED INTERVENTIONS: rocephin and azithromycin per patient's request DISCHARGE: At this time pt. is stable for d/c to home. Will provide printed patient care instructions, and any necessary prescriptions. Care plan and follow up instructions have been discussed with the patient prior to discharge. Last Vital Signs Date Time Temp Pulse Resp B/P (MAP) Pulse Ox O2 Delivery O2 Flow Rate FiO2 04/29/19 18:24 98.1 16 115/79 98 Room Air 04/29/19 17:34 101 Disposition: HOME, SELF-CARE Condition: Stable Patient Instructions: Sore Throat Nilton Cabrales Apr 29, 2019 18:56
[2019-04-29] MEDS ORDERED: Azithromycin 250mg tab ORAL ONE (19:00)
[2019-04-29] MEDS ORDERED: Lidocaine 1% MPF 10mg/ml 5ml INJ ONE (19:00)
--- NOTE | 2019-04-29 19:05 | NUR ---
ER DISCHARGE NOTE:pt. received IM and PO meds Patient is cleared to be discharged per ERMD, pt is aox4, on room air, with stable vital signs. pt was given dc and prescription instructions, pt was able to verbalize understanding, pt is able to ambulate with steady gait. pt took all belongings.
[2019-04-29 19:06] VITALS: BP 115/79
== END 2019-04-29 19:05 | disposition home or self-care (01) ==
LOC: EMR 19:00
DX: J02.9 Acute pharyngitis, unspecified (principal); Z90.710 Acquired absence of both cervix and uterus; I10 Essential (primary) hypertension; E11.9 Type 2 diabetes mellitus without complications; Z85.41 Personal history of malignant neoplasm of cervix uteri; K21.9 Gastro-esophageal reflux disease without esophagitis
CPT/HCPCS: 96372; 96374; J0696; Q0144; Z7502; 99284

== ENCOUNTER 2019-07-07 14:29 | Emergency (ER) | payer OTHER ==
[~2019-07-07] VITALS: Ht 160 cm; Wt 90.7 kg
[2019-07-07 14:50] VITALS: BP 136/83
--- NOTE | 2019-07-07 15:00 | NUR ---
ED Nurse Note: Patient walked to ED from home c/o RUQ pain and R arm pain. Patient states she was dx w/ liver cancer recently. Patient AxO x 4, no s/s of acute distress.
[2019-07-07] MEDS ORDERED: Omnipaque-300 100ml vial INJ PRN (16:00)
[2019-07-07 16:04] LABS: APPEARANCE,URINE CLEAR; BILIRUBIN, URINE NEGATIVE (NEGATIVE); GLUCOSE, URINE (UA) NEGATIVE (NEGATIVE); KETONES,URINE 1+ (NEGATIVE); LEUKOCYTE ESTERASE ,URINE 1+ (NEGATIVE); NITRITE,URINE NEGATIVE (NEGATIVE); PH,URINE 6 (4.5-8.0); PROTEIN,URINE NEGATIVE (NEGATIVE); UROBILINOGEN,URINE NORMAL MG/DL (0.0-1.0)
[2019-07-07 16:07] LABS: COLOR,URINE YELLOW
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
[2019-07-07 16:20] LABS: BASOPHILS % (AUTO) 0.8 % (0.0-2.0); HEMATOCRIT 33.4 % (37.0-47.0); HEMOGLOBIN 11.5 G/DL (12.0-16.0); LYMPHOCYTES % (AUTO) 47.9 % (20.0-45.0); MEAN CORPUSCULAR VOLUME 89 FL (80-99); MONOCYTES % (AUTO) 11.6 % (1.0-10.0); NEUTROPHILS % (AUTO) 36.6 % (45.0-75.0); PLATELET COUNT 233 K/UL (150-450); RED BLOOD COUNT 3.76 M/UL (4.20-5.40); RED CELL DISTRIBUTION WIDTH 12.5 % (11.6-14.8); WHITE BLOOD COUNT 6.8 K/UL (4.8-10.8)
[2019-07-07 16:46] LABS: ANION GAP 15 mmol/L (5-15); BLOOD UREA NITROGEN 8 mg/dL (7-18); CALCIUM 9.3 MG/DL (8.5-10.1); CARBON DIOXIDE 22 MMOL/L (21-32); CHLORIDE 107 MMOL/L (98-107); CREATININE 0.8 MG/DL (0.55-1.30); SODIUM 144 MMOL/L (136-145)
[2019-07-07 16:50] LABS: AMMONIA < 10 umol/L (11-32)
[2019-07-07 16:51] LABS: ALANINE AMINOTRANSFERASE 32 U/L (12-78); ALBUMIN 3.3 G/DL (3.4-5.0); ALBUMIN/GLOBULIN RATIO 0.8 (1.0-2.7); ALKALINE PHOSPHATASE 91 U/L (46-116); ASPARTATE AMINO TRANSFERASE 21 U/L (15-37); BILIRUBIN,TOTAL 0.2 MG/DL (0.2-1.0)
--- NOTE | 2019-07-07 18:40 | Diagnostic Imaging Report ---
Clinical Indication: Abdominal pain, right upper quadrant pain, right arm pain, history of recent diagnosis with liver cancer Technique: Patient given oral contrast. IV administration nonionic contrast. Venous phase spiral acquisition obtained through the abdomen and pelvis. Multiplanar reconstructions were generated. Total dose length product 647 mGycm. CTDIvol(s) 12 mGy. Dose reduction achieved using automated exposure control Comparison: 05/09/2014 Findings: The appendix is normal. There are colonic diverticula. No evidence of acute diverticulitis. No small bowel distention or small bowel wall thickening. No free or loculated intraperitoneal gas or fluid is evident. The distal esophagus, stomach, duodenum are unremarkable. The liver, gallbladder, bile ducts, pancreas, spleen, adrenals are unremarkable. The right kidney demonstrates a stable subcentimeter low-attenuation lesion. Left kidney is unremarkable. There is a retroaortic left renal vein. No retroperitoneal mass or adenopathy. No pelvic mass or adenopathy. The uterus is absent. The included lung bases demonstrate a small 3 mm subpleural opacity in the right middle lobe, also evident previously, are otherwise clear. The bones demonstrate degenerative spondylosis changes. Impression: No acute abnormality Colonic diverticulosis. No evidence of diverticulitis 3 mm right middle lobe subpleural opacity, also evident on prior exam of 2013 and presumed benign Subcentimeter right renal lesion, too small to compare is stable from 2014 and presumed benign Note no abnormality correlating with stated clinical history of liver cancer demonstrated This agrees with the preliminary interpretation provided overnight by [facility] teleradiology service. The CT scanner at [facility] is accredited by the [employer] and the scans are performed using protocols designed to limit radiation exposure to as low as reasonably achievable to attain images of sufficient resolution adequate for diagnostic evaluation.
[2019-07-07] MEDS ORDERED: NITROFURANTOIN100 M2 ORAL (18:50)
[2019-07-07] MEDS ORDERED: ZANTAC150 MG ORAL (18:50)
[2019-07-07] MEDS ORDERED: Mylanta II UD 30ml ORAL ONE (19:00)
[2019-07-07] MEDS ORDERED: Lidocaine 2% Visc 15ml soln ORAL ONE (19:00)
[2019-07-07] MEDS ORDERED: Ketorolac 30mg Inj IV ONE (19:00)
[2019-07-07 19:21] VITALS: BP 136/83
== END 2019-07-07 19:21 | disposition home or self-care (01) ==
LOC: EMR 18:15
DX: N30.01 Acute cystitis with hematuria (principal); R10.11 Right upper quadrant pain; R91.1 Solitary pulmonary nodule; Z90.710 Acquired absence of both cervix and uterus; K21.9 Gastro-esophageal reflux disease without esophagitis
CPT/HCPCS: 36415; 74177; 80053; 81003; 82140; 83690; 85025; 87086; 96361; 96374; J1885; J7030; Q9967; Z7502; 99284

== ENCOUNTER 2019-09-26 11:18 | Emergency (ER) | payer OTHER ==
[~2019-09-26] VITALS: Ht 160 cm; Wt 94.3 kg
[2019-09-26 11:27] VITALS: BP 121/81
[2019-09-26 12:10] LABS: BASOPHILS % (AUTO) 1.2 % (0.0-2.0); EOSINOPHILS % (AUTO) 0.9 % (0.0-3.0); HEMOGLOBIN 11.8 G/DL (12.0-16.0); LYMPHOCYTES % (AUTO) 53.1 % (20.0-45.0); MEAN CORPUSCULAR VOLUME 87 FL (80-99); MONOCYTES % (AUTO) 6.6 % (1.0-10.0); NEUTROPHILS % (AUTO) 38.2 % (45.0-75.0); PLATELET COUNT 238 K/UL (150-450); RED CELL DISTRIBUTION WIDTH 12.4 % (11.6-14.8); WHITE BLOOD COUNT 5.7 K/UL (4.8-10.8)
[2019-09-26 12:25] LABS: APPEARANCE,URINE CLEAR; BILIRUBIN, URINE NEGATIVE (NEGATIVE); COLOR,URINE PALE YELLOW; GLUCOSE, URINE (UA) NEGATIVE (NEGATIVE); KETONES,URINE NEGATIVE (NEGATIVE); LEUKOCYTE ESTERASE ,URINE NEGATIVE (NEGATIVE); NITRITE,URINE NEGATIVE (NEGATIVE); PH,URINE 5 (4.5-8.0); PROTEIN,URINE NEGATIVE (NEGATIVE); UROBILINOGEN,URINE NORMAL MG/DL (0.0-1.0)
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
[2019-09-26 12:36] LABS: ANION GAP 9 mmol/L (5-15); BLOOD UREA NITROGEN 11 mg/dL (7-18); CALCIUM 9.1 MG/DL (8.5-10.1); CARBON DIOXIDE 25 MMOL/L (21-32); CHLORIDE 109 MMOL/L (98-107); CREATININE 0.8 MG/DL (0.55-1.30); POTASSIUM 3.9 MMOL/L (3.5-5.1); SODIUM 143 MMOL/L (136-145)
[2019-09-26 12:40] LABS: ALANINE AMINOTRANSFERASE 31 U/L (12-78); ALBUMIN 3.4 G/DL (3.4-5.0); ALBUMIN/GLOBULIN RATIO 0.8 (1.0-2.7); ALKALINE PHOSPHATASE 77 U/L (46-116); ASPARTATE AMINO TRANSFERASE 26 U/L (15-37); BILIRUBIN,TOTAL 0.3 MG/DL (0.2-1.0)
[2019-09-26 13:59] VITALS: BP 119/78
== END 2019-09-26 13:59 | disposition home or self-care (01) ==
LOC: EMR 12:02
DX: R53.1 Weakness (principal); I10 Essential (primary) hypertension; J45.909 Unspecified asthma, uncomplicated; K21.9 Gastro-esophageal reflux disease without esophagitis; Z85.41 Personal history of malignant neoplasm of cervix uteri; Z90.710 Acquired absence of both cervix and uterus
CPT/HCPCS: 36415; 80053; 81003; 83690; 85025; 96360; J7030; Z7502; 99284

== ENCOUNTER 2019-09-29 19:30 | Emergency (ER) | payer OTHER ==
[~2019-09-29] VITALS: Ht 160 cm; Wt 94.3 kg
[2019-09-29 19:24] VITALS: BP 167/104
--- NOTE | 2019-09-29 19:24 | NUR ---
ED Nurse Note: PT WALKED IN TO ED FOR C/O DRY COUGH X 2 WEEKS. PT ALSO REPORTS HAVING HEADACHE AND BODY ACHES.
--- NOTE | 2019-09-29 20:17 | NUR ---
ED Nurse Note: ermd assessing pt in tent
--- NOTE | 2019-09-29 20:19 | NUR ---
ED Nurse Note: x ray being taken at tent
--- NOTE | 2019-09-29 20:22 | Emergency Room Report ---
History of Present Illness General Chief Complaint: Flu Like Symptoms Source: Patient Present Illness HPI Disclaimer: Please note that this report is being documented using [employer] technology. This can lead to erroneous entry secondary to incorrect interpretation by the dictating instrument. HPI: 54-year-old female with a history of hypertension borderline diabetes presents for evaluation of cough. Patient is daily cigarette smoker and has been coughing intermittently for approximate 1 month however it is gotten worse over the past 4 days. She denies increased phlegm production and is complaining that it hurts too much when she coughs. Denies significant shortness of breath or chest pain otherwise. Denies nasal congestion, sore throat, fever. Reports intermittent chills, lack of appetite and generalized nausea without vomiting or diarrhea. Denies abdominal pain. 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 PMH: Borderline diabetes, hypertension, HSV, diverticulitis PSH: Partial hysterectomy Allergies: None reported Social Hx: Daily tobacco use Allergies: Coded Allergies: No Known Allergies (Unverified , 08/07/15) COVID-19 Screening Contact w/high risk pt: No Recent Travel to affected area: No Experienced COVID-19 symptoms?: Yes COVID-19 symptoms experienced: Cough, Flu-Like Symptoms Patient History Last Menstrual Period: NA Nursing Documentation-PMH Past Medical History: No History, Except For Hx Hypertension: Yes Hx Asthma: Yes Hx COPD: No Hx Diabetes: Yes Hx Cancer: Yes - CERVICAL (HYSTERECTOMY) Hx Gastrointestinal Problems: Yes - acid reflux Hx Dialysis: No - HERPES Hx Cerebrovascular Accident: No Hx Seizures: No Review of Systems All Other Systems: negative except mentioned in HPI Physical Exam Vital Signs Date Time Temp Pulse Resp B/P (MAP) Pulse Ox O2 Delivery O2 Flow Rate FiO2 09/29/19 19:21 98.4 79 19 167/104 (125) 97 Room Air General: Awake and alert, no acute distress HEENT: NC/AT. EOMI. Cardiovascular: RRR. S1 and S2 normal. No murmur appreciated Resp: Normal work of breathing. No cough, wheezing or crackles appreciated MSK: Normal tone and bulk. Moving all extremities. No obvious deformity. Ambulating with a steady gait Neuro: Awake and alert. Mentating appropriately. Medical Decision Making Diagnostic Impression: Primary Impression: Suspected 2019 novel coronavirus infection Additional Impression: Bronchitis ER Course 54-year-old female presents for evaluation of worsening cough for the past 4 days as well as generalized fatigue, nausea, lack of appetite. Differential includes was not limited to viral syndrome, pneumonia, bronchitis, upper respiratory infection, GERD to name a few. She is well-appearing. Vital signs are within normal limits, no hypoxia. Based on the patient's presenting signs, symptoms and physical exam findings, the patient has been screened and is suspected to have COVID-19. Chest x-ray was obtained which does not show an obvious infiltrate. Her symptoms are consistent with a bronchitis which she has had multiple times in the past. Will be treated with azithromycin. Referred to outpatient COVID-19 testing as we are unable to test the patient due to limited supply at our facility at this time. She will follow-up with her PMD. Discussed reasons to return to the emergency department. She understands and agrees with this treatment plan. Chest X-Ray Diagnostic Results Chest X-Ray Diagnostic Results : Chest X-Ray Ordered: Yes # of Views/Limited/Complete: 1 View Indication: Shortness of Breath EP Interpretation: Yes Interpretation: no consolidation, no effusion, no pneumothorax Impression: No acute disease Electronically Signed by: Electronically signed by Dr. Santhosh Saenz Last Vital Signs Date Time Temp Pulse Resp B/P (MAP) Pulse Ox O2 Delivery O2 Flow Rate FiO2 09/29/19 19:24 79 19 Room Air 09/29/19 19:24 98.4 167/104 97 Disposition: HOME, SELF-CARE Condition: Stable Scripts Guaifenesin/Dextromethorphan* (Guaifenesin Dm Syrup*) 5 Ml Syrup 10 ML ORAL Q6H PRN for FOR COUGH, #118 ML Prov: Santhosh Saenz MD 09/29/19 Azithromycin* (ZITHROMAX*) 250 Mg Tablet 250 MG ORAL DAILY, #6 TAB 0 Refills Take two tables once daily for 1 day, then one tablet once daily for 4 days. Prov: Santhosh Saenz MD 09/29/19 Santhosh Saenz MD September 29, 2019 20:22
[2019-09-29] MEDS ORDERED: ZITHROMAX250 MG ORAL (20:32)
[2019-09-29] MEDS ORDERED: GUAIFENESIN DM118 M1 ORAL (20:32)
[2019-09-29 20:35] VITALS: BP 164/98
--- NOTE | 2019-09-29 20:35 | NUR ---
ER DISCHARGE NOTE: Patient is cleared to be discharged per ERMD, pt is aox4, on room air, with stable vital signs. pt was given dc and prescription instructions, pt was able to verbalize understanding, pt id band removed without complications. pt is able to ambulate with steady gait. pt took all belongings.
--- NOTE | 2019-09-29 21:26 | Diagnostic Imaging Report ---
INDICATION: Cough COMPARISON: 09/30/2018 FINDINGS: Single frontal view demonstrates a normal cardiomediastinal silhouette. The lungs are clear. No pleural effusions. The visualized osseous structures are within normal limits. IMPRESSION: No acute cardiopulmonary disease.
== END 2019-09-29 20:35 | disposition home or self-care (01) ==
LOC: EDBD 19:30 → EMR 20:29
DX: J20.9 Acute bronchitis, unspecified (principal); F17.210 Nicotine dependence, cigarettes, uncomplicated; I10 Essential (primary) hypertension; Z90.710 Acquired absence of both cervix and uterus; E11.9 Type 2 diabetes mellitus without complications; K21.9 Gastro-esophageal reflux disease without esophagitis
CPT/HCPCS: 71045; Z7502; 99283

== ENCOUNTER 2019-10-17 17:12 | Emergency (ER) | payer OTHER ==
[~2019-10-17] VITALS: Ht 160 cm; Wt 131.1 kg
[~2019-10-17 17:12] MED LIST changes: +GUAIFENESIN DM118 M1 ORAL; +ZITHROMAX250 MG ORAL
[2019-10-17 17:27] VITALS: BP 120/76
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
[2019-10-17 18:10] LABS: APPEARANCE,URINE CLEAR; BILIRUBIN, URINE NEGATIVE (NEGATIVE); COLOR,URINE PALE YELLOW; GLUCOSE, URINE (UA) NEGATIVE (NEGATIVE); KETONES,URINE NEGATIVE (NEGATIVE); LEUKOCYTE ESTERASE ,URINE NEGATIVE (NEGATIVE); NITRITE,URINE NEGATIVE (NEGATIVE); PH,URINE 7 (4.5-8.0); PROTEIN,URINE NEGATIVE (NEGATIVE); UROBILINOGEN,URINE NORMAL MG/DL (0.0-1.0)
--- NOTE | 2019-10-17 18:28 | Emergency Room Report ---
History of Present Illness General Chief Complaint: Abdominal Pain Source: Patient Present Illness HPI 59-year-old female presents to the emergency department complaining of 8 out of 10 severity lower abdominal pain, bladder fullness sensation and concern for STDs. Patient reports that she had sexual intercourse on the and had acute onset of her symptoms afterwards. Patient denies vaginal discharge. She denies dysuria she reports urinary frequency. Patient denies fevers or chills. Patient denies genital rashes or lesions. Patient denies swollen tender lymph nodes or joint pain. Patient with history of diverticulitis, hypertension , asthma and glaucoma. Denies nausea or vomiting. Pt. reports generalized fatigue. She denies significant changes in weight. Denies dizziness, ARZATE, loss of gross motor movements. Denies paresthesias. 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 COVID-19 Screening: Negative COVID-19 COVID-19 Testing Source: OP Patient History Past Medical History: see triage record, asthma, diverticulitis Past Surgical History: none Pertinent Family History: none Last Menstrual Period: 1991 (hx of hysterectomy) Now: No Reviewed Nursing Documentation: PMH: Agreed; PSxH: Agreed Nursing Documentation-PMH Hx Hypertension: Yes Hx Asthma: Yes Hx COPD: No Hx Diabetes: Yes - BORDERLINE Hx Cancer: Yes - CERVICAL (HYSTERECTOMY) Hx Dialysis: No - HERPES Hx Cerebrovascular Accident: No Hx Seizures: No Review of Systems All Other Systems: negative except mentioned in HPI Physical Exam Vital Signs Date Time Temp Pulse Resp B/P (MAP) Pulse Ox O2 Delivery O2 Flow Rate FiO2 10/17/19 17:27 98.4 99 18 120/76 (91) 94 Room Air Sp02 EP Interpretation: reviewed, normal General Appearance: no apparent distress, alert, GCS 15, non-toxic Head: normocephalic, atraumatic Eyes: bilateral eye normal inspection, bilateral eye PERRL ENT: hearing grossly normal, normal voice Neck: full range of motion Respiratory: lungs clear, normal breath sounds, speaking full sentences Cardiovascular #1: regular rate, rhythm Gastrointestinal: normal bowel sounds, non tender, soft, no peritonitis, non- distended, no guarding Rectal: deferred Genitourinary: normal inspection, no CVA tenderness Musculoskeletal: back normal, normal range of motion, gait/station normal, non- tender Neurologic: alert, motor strength/tone normal, oriented x3, sensory intact, responsive, speech normal Psychiatric: judgement/insight normal Skin: no rash, normal color Medical Decision Making PA Attestation Dr. Saenz is my supervising Physician whom patient management has been discussed with. Diagnostic Impression: Primary Impression: Contact with or exposure to venereal diseases ER Course 59-year-old female presents to the emergency department complaining of 8 out of 10 severity lower abdominal pain, bladder fullness sensation and concern for STDs. Patient reports that she had sexual intercourse on the and had acute onset of her symptoms afterwards. Patient denies vaginal discharge. She denies dysuria she reports urinary frequency. Patient denies fevers or chills. Patient denies genital rashes or lesions. Patient denies swollen tender lymph nodes or joint pain. Patient with history of diverticulitis, hypertension , asthma and glaucoma. Denies nausea or vomiting. Pt. reports generalized fatigue. She denies significant changes in weight. Denies dizziness, ARZATE, loss of gross motor movements. Denies paresthesias. Pt. very concerned for syphilis. She reports having contact with syphilis in the past and experiencing the same symptoms. Pt. requesting tx for this as well. Ddx considered but are not limited to UTi , STI, G & C, trichomonas, Vaginitis , cervicitis, Bartholin gland cyst or cellulitis, syphilis Vital signs: are WNL, pt. is afebrile H&PE are most consistent with concern for STD w. recent contact with or exposure via unprotected intercourse on the . ORDERS: - UA: WNL ED INTERVENTIONS: -250mg Rocephin IM -PCN G 2.4IU IM DISCHARGE: At this time pt. is stable for d/c to home. Will provide printed patient care instructions, and any necessary prescriptions. Care plan and follow up instructions have been discussed with the patient prior to discharge. Labs Test 10/17/19 17:45 Urine Color Pale yellow Urine Appearance Clear Urine pH 7 (4.5-8.0) Urine Specific [place] 1.010 (1.005-1.035) Urine Protein Negative (NEGATIVE) Urine Glucose (UA) Negative (NEGATIVE) Urine Ketones Negative (NEGATIVE) Urine Blood Negative (NEGATIVE) Urine Nitrite Negative (NEGATIVE) Urine Bilirubin Negative (NEGATIVE) Urine Urobilinogen Normal MG/DL (0.0-1.0) Urine Leukocyte Esterase Negative (NEGATIVE) Last Vital Signs Date Time Temp Pulse Resp B/P (MAP) Pulse Ox O2 Delivery O2 Flow Rate FiO2 10/17/19 17:37 99 18 Room Air 10/17/19 17:27 98.4 120/76 94 Disposition: HOME, SELF-CARE Condition: Stable Scripts Doxycycline Hyclate* (VIBRAMYCIN*) 100 Mg Capsule 100 MG ORAL EVERY 12 HOURS for 7 Days, #14 CAP 0 Refills Prov: Rivka Chung 10/17/19 Referrals: [facility],REFERRING (PCP) Patient Instructions: Abdominal Pain, Adult Additional Instructions: Take medications as directed. Follow up with a Primary Care Provider in 3-5 days, even if your symptoms have resolved. --Please review list of primary care clinics, if you do not already have a primary care provider Return sooner to ED if new symptoms occur, or current symptoms become worse. Do not drink alcohol, drive, or operate heavy machinery while taking [ ] as this may cause drowsiness. - Please note that this Emergency Department Report was dictated using [employer] laborer technology software, occasionally this can lead to erroneous entry secondary to interpretation by the dictation equipment. Rivka Chung October 17, 2019 18:28
[2019-10-17] MEDS ORDERED: Phenazopyridine 200mg tab ORAL ONE (18:30)
[2019-10-17] MEDS ORDERED: Bicillin LA 2.4MMU/4ML SYR IM ONE (18:30)
[2019-10-17] MEDS ORDERED: VIBRAMYCIN100 MG ORAL (18:33)
[2019-10-17] MEDS ORDERED: Lidocaine 1% MPF 10mg/ml 5ml INJ ONE (18:45)
[2019-10-17 19:09] VITALS: BP 132/75
--- NOTE | 2019-10-17 19:09 | NUR ---
ER DISCHARGE NOTE: Patient is cleared to be discharged per PA, pt is aox4, on room air, with stable vital signs. pt was given dc and prescription instructions, pt was able to verbalize understanding, pt id band removed. pt is able to ambulate with steady gait. pt took all belongings.
== END 2019-10-17 19:09 | disposition home or self-care (01) ==
LOC: EMR 17:26
DX: Z20.2 Contact with and (suspected) exposure to infections with a predominantly sexual mode of transmission (principal); R10.30 Lower abdominal pain, unspecified; I10 Essential (primary) hypertension; J45.909 Unspecified asthma, uncomplicated; Z90.710 Acquired absence of both cervix and uterus
CPT/HCPCS: 81003; 96372; 96374; J0696; Z7502; 99284

== ENCOUNTER 2019-11-08 18:48 | Emergency (ER) | payer MEDICAID, OTHER ==
[~2019-11-08] VITALS: Ht 160 cm; Wt 88.5 kg
[~2019-11-08 18:48] MED LIST changes: +VIBRAMYCIN100 MG ORAL
--- NOTE | 2019-11-08 19:00 | NUR ---
ED Nurse Note: Pt walked into ED from home c/o feeling weak and burning sensation on vaginal area since 11/01/19. reports patient had sexual intercourse with her ex who has positive STD. Pt's VSS, on RA, afebrile on triage. Placed on bed.
[2019-11-08 19:02] VITALS: BP 133/84
--- NOTE | 2019-11-08 19:08 | NUR ---
ED Nurse Note: ERPA at bedside.
[2019-11-08] MEDS ORDERED: Bicillin LA 2.4MMU/4ML SYR IM ONE (19:15)
[2019-11-08] MEDS ORDERED: Lidocaine 1% MPF 10mg/ml 5ml INJ ONE (19:15)
--- NOTE | 2019-11-08 19:16 | NUR ---
ED Nurse Note: report given to FÉLIX Arvizu for continuity of care.
--- NOTE | 2019-11-08 19:17 | Emergency Room Report ---
History of Present Illness General Chief Complaint: Female Urogenital Problems Source: Patient Present Illness HPI 54-year-old female presents to the emergency department complaining of 7/10 dysuria, vaginal burning and discharge x1 week. Patient reports onset after having intercourse with her ex- who has been diagnosed with STD. She denies hematuria she denies genital lesions or sores. Patient is also concerned for syphilis that she states that she has noticed a rash on the bottom of the right foot. Patient denies fevers or chills. She denies abdominal pain or tenderness. She denies nausea or vomiting. No other aggravating or relieving factors at this time. 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 Patient History Past Medical History: see triage record Past Surgical History: none Pertinent Family History: none Now: No Reviewed Nursing Documentation: PMH: Agreed; PSxH: Agreed Nursing Documentation-PMH Past Medical History: No History, Except For Hx Hypertension: Yes Hx Asthma: Yes Hx COPD: No Hx Diabetes: Yes Hx Cancer: Yes - CERVICAL (HYSTERECTOMY) Hx Dialysis: No - HERPES Hx Cerebrovascular Accident: No Hx Seizures: No Review of Systems All Other Systems: negative except mentioned in HPI Physical Exam Vital Signs Date Time Temp Pulse Resp B/P (MAP) Pulse Ox O2 Delivery O2 Flow Rate FiO2 11/08/19 18:49 98.4 90 17 133/84 (100) 97 Room Air Sp02 EP Interpretation: reviewed, normal General Appearance: no apparent distress, alert, GCS 15, non-toxic Head: normocephalic, atraumatic Eyes: bilateral eye normal inspection, bilateral eye PERRL ENT: hearing grossly normal, normal voice Neck: full range of motion Respiratory: lungs clear, normal breath sounds, speaking full sentences Cardiovascular #1: regular rate, rhythm Gastrointestinal: normal bowel sounds, non tender, soft Rectal: deferred Genitourinary: normal inspection, no CVA tenderness, adnexa normal, deferred - deferred by pt. Musculoskeletal: normal range of motion, gait/station normal, non-tender Neurologic: alert, motor strength/tone normal, oriented x3, sensory intact, responsive, speech normal Psychiatric: judgement/insight normal Skin: no rash, normal color Lymphatic: no adenopathy Medical Decision Making PA Attestation Dr. [place] is my supervising Physician whom patient management has been discussed with. Diagnostic Impression: Primary Impression: Contact with or exposure to venereal diseases ER Course 54-year-old female presents to the emergency department complaining of 7/10 dysuria, vaginal burning and discharge x1 week. Patient reports onset after having intercourse with her ex- who has been diagnosed with STD. She denies hematuria she denies genital lesions or sores. Patient is also concerned for syphilis that she states that she has noticed a rash on the bottom of the right foot. Patient denies fevers or chills. She denies abdominal pain or tenderness. She denies nausea or vomiting. No other aggravating or relieving factors at this time. Ddx considered but are not limited to UTi , STI, G & C, trichomonas, Vaginitis , cervicitis, Bartholin's gland cyst or cellulitis. Vital signs: are WNL, pt. is afebrile H&PE are most consistent with exposure to venereal disease -symptomatic. ORDERS: - None at this time ED INTERVENTIONS: -250mg Rocephin IM -2.4 million units PCN IM DISCHARGE: At this time pt. is stable for d/c to home. Will provide printed patient care instructions, and any necessary prescriptions. Care plan and follow up instructions have been discussed with the patient prior to discharge. Last Vital Signs Date Time Temp Pulse Resp B/P (MAP) Pulse Ox O2 Delivery O2 Flow Rate FiO2 11/08/19 19:02 98.4 17 133/84 97 Room Air 11/08/19 18:49 90 Disposition: HOME, SELF-CARE Condition: Stable Scripts Doxycycline Hyclate* (VIBRAMYCIN*) 100 Mg Capsule 100 MG ORAL EVERY 12 HOURS for 7 Days, #14 CAP 0 Refills Prov: Rivka Chung 11/08/19 Patient Instructions: Chlamydia, Female, Gonorrhea Additional Instructions: Take medications as directed. MAKE SURE YOUR PARTNERS GET TREATED WITH ANTIBIOTICS to prevent becoming re- infected No intercourse for 7-10 days, as you are infectious and can spread the bacterial infection. Follow up with PCP in 3-5 days Return sooner to ED if new symptoms occur, or current symptoms become Rivka Chung Nov 08, 2019 19:17
[2019-11-08] MEDS ORDERED: VIBRAMYCIN100 MG ORAL (19:18)
[2019-11-08 19:56] VITALS: BP 133/84
--- NOTE | 2019-11-08 19:56 | NUR ---
ED Nurse Note: Pt cleared by health care Provider for discharge. DC instructions/prescription was given and explained to pt and verbalized understanding of teachings. All medical deviecs such as ID band removed. Pt is AAO x4, ambulatory and left with all personal belongings.
== END 2019-11-08 19:55 | disposition home or self-care (01) ==
LOC: EMR 19:15
DX: Z20.2 Contact with and (suspected) exposure to infections with a predominantly sexual mode of transmission (principal); I10 Essential (primary) hypertension; J45.909 Unspecified asthma, uncomplicated; E11.9 Type 2 diabetes mellitus without complications; Z85.41 Personal history of malignant neoplasm of cervix uteri; Z90.710 Acquired absence of both cervix and uterus
CPT/HCPCS: 96372; J0696; Z7502; 99283